=== PATIENT | female | born 1975 ===

== ENCOUNTER 2018-10-11 11:12 | Outpatient (CLI) | payer OTHER | END 2018-10-11 11:28 | disposition home or self-care (01) | LOC: MAMO-SONO 11:12 | DX: N60.11 Diffuse cystic mastopathy of right breast (principal); N60.12 Diffuse cystic mastopathy of left breast; E07.89 Other specified disorders of thyroid; Z12.31 Encounter for screening mammogram for malignant neoplasm of breast ==

== ENCOUNTER 2019-01-09 10:19 | Outpatient (CLI) | payer OTHER | END 2019-01-09 10:21 | disposition home or self-care (01) | LOC: SONOGRAMA 10:19 | DX: R59.9 Enlarged lymph nodes, unspecified (principal) ==

== ENCOUNTER 2024-11-14 10:56 | Outpatient (CLI) | payer OTHER | END 2024-11-14 11:01 | disposition home or self-care (01) | LOC: TOM 10:56 | PROVIDERS: ATTEND Otolaryngology | DX: M35.02 Sjogren syndrome with lung involvement (principal); J01.10 Acute frontal sinusitis, unspecified ==

== ENCOUNTER 2024-12-06 10:19 | Outpatient (CLI) | payer OTHER | END 2024-12-06 10:26 | disposition home or self-care (01) | LOC: RAD 10:19 | PROVIDERS: ATTEND General Practice | DX: M35.00 Sjogren syndrome, unspecified (principal); R91.1 Solitary pulmonary nodule ==

== ENCOUNTER 2025-05-22 13:05 | Outpatient (CLI) | payer OTHER | END 2025-05-22 13:21 | disposition home or self-care (01) | LOC: TOM 13:05 | PROVIDERS: ATTEND Specialist | DX: J84.9 Interstitial pulmonary disease, unspecified (principal); J47.9 Bronchiectasis, uncomplicated; R05.2 Subacute cough ==